=== PATIENT | male | born 1980 | race Caucasian/White ===

== ENCOUNTER 2017-02-27 19:51 | Emergency (ER) | payer SELFPAY ==
[2017-02-27 20:01] VITALS: BP 131/74; PULSE 81; RESP 16; TEMP 98.8; O2SAT 99
--- NOTE | 2017-02-27 20:30 | ED PDOC ---
HPI: General Adult Time Seen by Provider: 02/27/17 20:06 Chief Complaint (Nursing): ENT Problem Chief Complaint (Provider): left ear pain History Per: Patient, [employer] Supervisor (Niki Huitron RN at bedside for [employer]) Onset/Duration Of Symptoms: Days (x 3) Have you had recent travel within the past 21 days to any of the following countries: [place], [place], [place] or [place]?: No Additional Complaint(s): Howard Rivera is a 36 year old male, with no previous medical history, who presents to the ED with complaints of left ear pain ongoing for the past 3 days. Patient has noticed some drainage from left ear. He denies fever, chills , dizziness, headache, hearing loss. No meds taken for pain relief. PMD: none provided Past Medical History Reviewed: Historical Data, Nursing Documentation, Vital Signs Vital Signs: Last Vital Signs Temp 98.8 F 02/27/17 20:01 Pulse 81 02/27/17 20:01 Resp 16 02/27/17 20:01 BP 131/74 02/27/17 20:01 Pulse Ox 99 02/27/17 20:33 - Medical History PMH: No Chronic Diseases - Surgical History Surgical History: No Surg Hx - Family History Family History: States: No Known Family Hx - Living Arrangements Living Arrangements: With Family - Social History Current smoker - smoking cessation education provided: No Alcohol: None Drugs: Denies - Home Medications Home Medications: Ambulatory Orders Medication Instructions Recorded Cephalexin [Keflex] 500 mg PO BID #20 cap 05/16/15 traMADol [Ultram] 50 mg PO Q6H PRN #15 tab 05/16/15 Neomycin/Polymyxin/Hydrocort 4 drop TOP BID #1 bottle 02/27/17 [Cortisporin Otic Soln] - Allergies Allergies/Adverse Reactions: Allergies Allergy/AdvReac Type Severity Reaction Status Date / Time No Known Allergies Allergy Verified 02/27/17 19:59 Review of Systems ROS Statement: Except As Marked, All Systems Reviewed And Found Negative ENT: Positive for: Other (left ear pain for 3 days). Negative for: Nose Congestion, Throat Pain, Throat Swelling Physical Exam - Reviewed Nursing Documentation Reviewed: Yes Vital Signs Reviewed: Yes - Physical Exam Appears: Positive for: Well, Non-toxic, No Acute Distress Skin: Negative for: Rash ENT: Positive for: TM Is/Are ( bilaterally), Other (left ear canal erythematous with edema and exudate noted. right ear within normal limits ). Negative for: Sinus Pain/Drainage, Nasal Congestion, Pharyngeal Erythema, Tonsillar Exudate, Tonsillar Swelling Cardiovascular/Chest: Positive for: Regular Rate, Rhythm Respiratory: Positive for: Normal Breath Sounds. Negative for: Respiratory Distress Neurologic/Psych: Positive for: Alert, Oriented - ECG O2 Sat by Pulse Oximetry: 99 (RA) Pulse Ox Interpretation: Normal Medical Decision Making Medical Decision Making: Initial Impression: otitis externa Plan: Rx cortisporin otic and motrin. Patient was referred to clinic for follow up. Scribe Attestation: Documented by Alis Mireles, acting as a scribe for Diane Orantes PA-C. Provider Scribe Attestation: All medical record entries made by the Scribe were at my direction and personally dictated by me. I have reviewed the chart and agree that the record accurately reflects my personal performance of the history, physical exam, medical decision making, and the department course for this patient. I have also personally directed, reviewed, and agree with the discharge instructions and disposition. Disposition - Clinical Impression Clinical Impression: Otitis externa - Patient ED Disposition Is Patient to be Admitted: No Counseled Patient/Family Regarding: Diagnosis, Need For Followup, Rx Given - Disposition Referrals: [facility] [Outside] Disposition: Routine/Home Disposition Time: 21:24 Condition: STABLE Additional Instructions: Take rx meds as directed. Follow up with clinic in 2-3 days. Prescriptions: Neomycin/Polymyxin/Hydrocort [Cortisporin Otic Soln] 4 drop TOP BID #1 bottle Instructions: Otitis Externa (ED)
== END 2017-02-27 22:02 | disposition home or self-care (01) ==
LOC: H.ER 19:51
DX: H60.92 Unspecified otitis externa, left ear (principal)